=== PATIENT | male | born 1970 | race Caucasian/White ===

== ENCOUNTER 2020-12-13 17:04 | Emergency (ER) | payer MEDICAID ==
[~2020-12-13] VITALS: Ht 180.3 cm; Wt 186.4 kg
[2020-12-13 17:34] VITALS: BP 146/93; Ht 180.3 cm; Wt 186.4 kg
[2020-12-13] MEDS ORDERED: MECLIZINE HCL25 MG PO ×2 (17:35→18:09)
[2020-12-13] MEDS ORDERED: LASIX80 MG PO (17:36)
== END 2020-12-13 18:48 | disposition home or self-care (01) ==
LOC: D.ER 17:04
DX: H81.09 Meniere's disease, unspecified ear (principal)